=== PATIENT | female | born 1945 | race Caucasian/White ===

== ENCOUNTER 2018-02-16 13:18 | Emergency (ER) | payer MEDICARE, OTHER ==
[2018-02-16 13:41] LABS: PLATELET COUNT 232 10^3/uL (150-400)
--- NOTE | 2018-02-16 14:54 | EDPHY ---
HPI/HX/ROS/PE/MDM Narrative: CHIEF COMPLAINT: Nausea and vomiting. HISTORY OF PRESENT ILLNESS: This patient is a 72 year old female arriving with her complaining of fever and gastrointestinal symptoms beginning two days ago. Initially she had fever, headache, and loose stools. She slept all day yesterday. Today, went to work and noted her hands and body were shaking, felt nauseous. She went home and noted her temperature was 103.2 degrees Fahrenheit on her home thermometer around 13:30. She began vomiting around this time. No hematemesis. Last night, she had a severe headache which has now resolved. She denies neck pain or stiffness. The patient is often around elderly people at the hospital and at [facility]. Denies any known ill contacts or exposure to school-age children. No international travel. No history of diverticulitis or urinary tract infections. No cough, sore throat, congestion, or rhinorrhea. No chest pain, shortness of breath, palpitations, urinary complaints, lightheadedness. REVIEW OF SYSTEMS: A comprehensive 10 system review of systems is otherwise negative aside from elements mentioned in the history of present illness and medical decision making. PAST MEDICAL HISTORY: Hyperlipidemia (statin). SOCIAL HISTORY: . at bedside. Does not abuse tobacco, drugs, or alcohol. VITAL SIGNS: Reviewed by me. Temperature 38.7 GENERAL: Well-developed, well-nourished, resting comfortably in no respiratory distress. HEENT: Atraumatic. Eyes: No icterus, no injection. Mouth: moist mucous membranes. No erythema or lesions. Neck: supple with no adenopathy. LUNGS: Clear to auscultation bilaterally, no wheezes, rhonchi or rales. CARDIAC: Regular rate and rhythm, no rubs, murmurs or gallops. ABDOMEN: Soft, nontender, nondistended, bowel sounds normal. BACK: No CVA tenderness. EXTREMITIES: No trauma. No edema. Range of motion is normal throughout. NEURO: Alert and oriented, grossly nonfocal. SKIN: Warm and dry, no rash. PSYCHIATRIC: Normal mentation, no agitation. Portions of this note were transcribed by a medical administrative. I personally performed a history, physical exam, medical decision making, and confirmed accuracy of information the transcribed note. ED Course: 72 y/o female presents with fever, nausea, and vomiting. Temp 38.7 at triage. IV established. Plan for labs including CBC, chemistries, lactic acid, blood cultures, UA. Plan to administer 1L IV NS. Plan for CT abdomen/pelvis. Labs largely unremarkable. Lactic acid negative. Patient is not tachycardic, hypotensive. Discussed no source for fever, loose stools, and vomiting found thus far. Offered CT scanning to evaluate for intraabdominal process. Patient and decline. They suspect viral illness and that seems a reasonable possibility. Urine: not infective. Reassessed patient. She is feeling very well after fluids and antipyretics. Wants to eat and wants to be discharged to home. Script for Zofran given. Follow up and return precautions discussed. She is comfortable with this plan. MDM: Differential diagnosis for fever in adults was considered including but not limited to pneumonia, urinary tract infection, viral syndrome, bacterial gastroenteritis, travelers diarrhea, and influenza. - Data Points Laboratory Results: Laboratory Results 02/16/18 13:00 02/16/18 13:00 Medications Given: Discontinued Medications Sodium Chloride (Ns) 1,000 mls @ 0 mls/hr IV ONCE ONE; Wide Open PRN Reason: Protocol Stop: 02/16/18 15:01 Last Admin: 02/16/18 16:47 Dose: 1,000 mls Ondansetron HCl (Zofran Odt 4 Mg Prepack#2) 1 btl TAKEHOME EDNOW ONE Stop: 02/16/18 16:59 Last Admin: 02/16/18 17:08 Dose: 1 btl Oxycodone/Acetaminophen (Percocet 5/325mg Prepack#4) 1 btl TAKEHOME EDNOW ONE Stop: 02/16/18 16:59 Last Admin: 02/16/18 17:09 Dose: Not Given Point of Care Test Results: Chemistry 02/16/18 13:27 POC Sodium 134 mEq/L L mEq/L (135-145) POC Potassium 4.0 mEq/L mEq/L (3.3-5.0) POC Chloride 99 mEq/L mEq/L (97-110) POC BUN 14 mg/dL mg/dL (7-23) POC Creatinine 0.9 mg/dL mg/dL (0.6-1.0) POC Glucose 143 mg/dL H mg/dL (70-100) ISTAT H&H 02/16/18 13:27 POC Hgb 14.3 gm/dL gm/dL (12.6-16.3) POC Hct 42 % % (38-47) General Time Seen by Provider: 02/16/18 14:30 Initial Vital Signs: Initial Vital Signs Temperature (C) 38.7 C H 02/16/18 13:24 Heart Rate 91 02/16/18 13:24 Respiratory Rate 18 02/16/18 13:24 Blood Pressure 154/88 H 02/16/18 13:24 O2 Sat (%) 98 02/16/18 13:24 O2 Delivery Mode Room Air Allergies/Adverse Reactions: No Known Allergies Allergy (Verified 02/16/18 13:26) Home Medications: Medication Instructions Recorded Atorvastatin Calcium 02/16/18 Ondansetron Odt [Zofran Odt 4 mg 4 mg PO Q6 PRN #8 tab 02/16/18 (RX)] oxyCODONE/APAP 5/325 [Percocet 1 - 2 tab PO Q6H PRN #7 tab 02/16/18 5/325 (*)] Departure - Departure Disposition: Home, Routine, Self-Care Clinical Impression: Fever Qualifiers: Fever type: unspecified Qualified Code(s): R50.9 - Fever, unspecified Nausea and vomiting Qualifiers: Vomiting type: unspecified Vomiting Intractability: non-intractable Qualified Code(s): R11.2 - Nausea with vomiting, unspecified Condition: Good Instructions: Ondansetron (By mouth), Fever in Adults (ED), Acute Nausea and Vomiting (ED) Additional Instructions: 1. Follow up with your primary care provider. 2. Take ibuprofen and Tylenol as directed below as needed for fever. 3. Stay well-hydrated. 4. Return to the emergency department for high fever, uncontrollable vomiting or diarrhea, blood in your vomit or stool, severe abdominal pain, chest pain, shortness of breath, or other worsening of condition or further concerns. Adult Pain & Fever Control: We recommend Acetaminophen (Tylenol) and Ibuprofen (Motrin,Advil) for pain and fever control. When fever is high or pain severe, both drugs can be used at the same time, but at different intervals. Please note the time differences. Your dose is: Acetaminophen 650mg every 4 to 6 hours Ibuprofen 600mg every 6-8 hours with food Note: do not take Acetaminophen with Hydrocodone (Vicodin, Lortab) or Oxycodone (Percocet). These medications also contain Acetaminophen. No more than 3000mg of Acetaminophen should be taken in 24 hours (for an adult). Referrals: YOEL WHEELER [Primary Care Provider] - As per Instructions Prescriptions: Ondansetron Odt [Zofran Odt 4 mg (RX)] 4 mg PO Q6 PRN #8 tab PRN Reason: Nausea oxyCODONE/APAP 5/325 [Percocet 5/325 (*)] 1 - 2 tab PO Q6H PRN #7 tab PRN Reason: Pain, Severe Report Scribed for: Skylar Pimentel Report Scribed by: Malathi Michelle Date of Report: 02/16/18 Time of Report: 14:55
[2018-02-16] MEDS ORDERED: NS 1,000 ML IV ONE (15:00)
[2018-02-16] MEDS ORDERED: IOPAMIDOL (ISOVUE-300) 100 ML BTL ONE (15:27)
[2018-02-16] MEDS ORDERED: OXYCODONE/APAP 5/325MG PREPACK#4 BTL TAKEHOME ONE (16:58)
[2018-02-16] MEDS ORDERED: ONDANSETRON 4MG PREPACK#2 BTL TAKEHOME ONE (16:58)
[2018-02-16 17:10] VITALS: BP 133/87
== END 2018-02-16 17:14 | disposition home or self-care (01) ==
LOC: EDUNIT#
DX: R11.2 Nausea with vomiting, unspecified (principal); R50.9 Fever, unspecified
CPT/HCPCS: 82435-PO; 82565-PO; 82947-PO; 84132-PO; 84295-PO; 84520-PO; 85014-PO; Q9967